=== PATIENT | female | born 1945 | race Caucasian/White ===

== ENCOUNTER 2021-04-13 21:52 | Inpatient (IN) ==
[2021-04-13] MEDS ORDERED: D5W IV ONE ×2 (23:00→23:54)
[2021-04-13] MEDS ORDERED: DILTIAZEM IV ONE ×2 (23:00→23:54)
[2021-04-13 23:20] LABS: ABS Basophils 0.1 10^3/ul (0-0.2); ABS Lymphocytes 1.6 10^3/ul (1.0-4.8); ABS Monocytes 0.7 10^3/ul (0-0.8); ABS Neutrophils 7.1 10^3/ul (1.5-7.7); Hematocrit 31 % (35-47); Hemoglobin 10.6 g/dL (12.0-16.0); Lymphocyte % 16.5 %; Mean Corpuscular HGB Conc 34 g/dL (31-36); Mean Corpuscular Hemoglobin 28 pg (27-31); Mean Corpuscular Volume 82 fL (80-97); Platelet Count 249 10^3/uL (150-450); Red Blood Count 3.84 10^6 /uL (3.70-4.87); Red Cell Distribution Width 16 % (10-15); White Blood Count 9.4 10^3/uL (3.5-10.8)
[2021-04-13 23:35] LABS: Albumin 3.2 g/dL (3.2-5.2); Anion Gap 10 mmol/L (2-11); CO2 Carbon Dioxide 24 mmol/L (22-32); Chloride 101 mmol/L (101-111); Magnesium 1.6 mg/dL (1.9-2.7); Potassium 3.8 mmol/L (3.5-5.0); Sodium 135 mmol/L (135-145)
[2021-04-13 23:41] LABS: ALT 14 U/L (7-52); AST 20 U/L (13-39); Albumin/Globulin Ratio 1.2 (1-3); Alkaline Phosphatase 73 U/L (35-149); Blood Urea Nitrogen 31 mg/dL (6-24); Globulin 2.6 g/dL (2-4); Glucose 338 mg/dL (70-100); Total Protein 5.8 g/dL (6.4-8.9)
[2021-04-13] MEDS ORDERED: Diltiazem (ADVAN VIAL) 100 MG/100 ML ADDV.BAG IV ONE (23:44)
[2021-04-13] MEDS ORDERED: Diltiazem IV push/loading dose 5 MG/ML 5 ML vial (25 mg) IV SLOW PU ONE (23:44)
[2021-04-13 23:51] LABS: TSH Ultra Thyroid Stim Horm 33.92 mcIU/mL (0.34-5.60)
[2021-04-13 23:52] LABS: Troponin I 0.06 ng/mL (<0.03)
[2021-04-14] MEDS ORDERED: Senna TAB 8.6 mg TAB PO PRN (00:34)
[2021-04-14] MEDS ORDERED: Dextrose 50% Syringe 50 ml 25 GM/50 ML SYRINGE IV PUSH PRN (00:36)
[2021-04-14] MEDS ORDERED: Magnesium Sulfate 2 gm BAG 2 GM/50 ML BAG IVPB ONE ×2 (00:38→02:20)
[2021-04-14] MEDS ORDERED: Ondansetron 4 mg VIAL 2 MG/ML 2 ml VIAL IV PRN (00:40)
[2021-04-14 01:18] LABS: Urine Appearance Cloudy; Urine Bilirubin Negative (Negative); Urine Blood 1+ (Negative); Urine Color Yellow; Urine Glucose 3+(>=500 mg/dL) (Negative); Urine Ketones Negative (Negative); Urine Nitrite Negative (Negative); Urine Protein 1+(30 mg/dL) (Negative); Urine Specific Gravity 1.021 (1.002-1.030); Urine Urobilinogen Negative (Negative)
[2021-04-14 01:22] LABS: Urine Bacteria 1+ (Absent); Urine Red Blood Cell 1+(3-5/hpf) (Absent); Urine Squamous Epithelial Cell Present (Absent); Urine White Blood Cell 2+(11-20/hpf) (Absent)
[2021-04-14 01:40] LABS: Rapid COVID-19 Molecular Undetected (Undetected)
[2021-04-14 01:46] LABS: Free T4 0.98 ng/dL (0.61-1.12)
[2021-04-14 03:30] LABS: Glucose Confirmatory 416 mg/dL (70-100)
[2021-04-14 03:36] LABS: Troponin I 0.07 ng/mL (<0.03)
[2021-04-14] MEDS ORDERED: Insulin GLARGINE 100 un/ml 10 ml VIAL SUBCUT ONE (04:14)
[2021-04-14] MEDS: cefTRIAXone 1 gm/50 mL NS BAG 1 GM/50 ML BAG IVPB SCH (05:52)
[2021-04-14 06:15] LABS: ABS Lymphocytes 1.3 10^3/ul (1.0-4.8); ABS Monocytes 0.6 10^3/ul (0-0.8); ABS Neutrophils 7.1 10^3/ul (1.5-7.7); Hematocrit 30 % (35-47); Lymphocyte % 14.7 %; Mean Corpuscular HGB Conc 34 g/dL (31-36); Mean Corpuscular Hemoglobin 28 pg (27-31); Mean Corpuscular Volume 81 fL (80-97); Mean Platelet Volume 7.7 fL (7.4-10.4); Platelet Count 246 10^3/uL (150-450); Red Blood Count 3.66 10^6 /uL (3.70-4.87); Red Cell Distribution Width 16 % (10-15); White Blood Count 9.1 10^3/uL (3.5-10.8)
[2021-04-14 06:30] LABS: Calcium 9.4 mg/dL (8.6-10.3); Potassium 3.1 mmol/L (3.5-5.0)
[2021-04-14 07:40] LABS: Magnesium 3.3 mg/dL (1.9-2.7)
[2021-04-14] MEDS ORDERED: CMCS: SitaGLIPtin 25mg TAB (NF) 25 MG TAB PO SCH (09:00)
[2021-04-14] MEDS: KCL 20 MEQ/100 ML IVPREMIX 20 MEQ/100 ML BAG IV SCH ×5 (09:34→23:37)
[2021-04-14] MEDS ORDERED: Metoprolol Tartrate 5 mg VIAL 5 ml VIAL (1 mg/ml) IV ONE (11:15)
[2021-04-14 16:16] LABS: Calcium 9.6 mg/dL (8.6-10.3); Potassium 3.6 mmol/L (3.5-5.0)
[2021-04-14] MEDS ORDERED: Furosemide 40 mg/4 ml IV VIAL IV SLOW PU ONE (17:03)
[2021-04-15] MEDS: cefTRIAXone 1 gm/50 mL NS BAG 1 GM/50 ML BAG IVPB SCH (05:11)
[2021-04-15 05:14] LABS: Hematocrit 36 % (35-47); Hemoglobin 12.2 g/dL (12.0-16.0); Mean Corpuscular HGB Conc 34 g/dL (31-36); Mean Corpuscular Hemoglobin 28 pg (27-31); Mean Corpuscular Volume 82 fL (80-97); Mean Platelet Volume 7.5 fL (7.4-10.4); Platelet Count 267 10^3/uL (150-450); Red Blood Count 4.41 10^6 /uL (3.70-4.87); Red Cell Distribution Width 17 % (10-15)
[2021-04-15 05:36] LABS: Calcium 9.3 mg/dL (8.6-10.3); Magnesium 1.8 mg/dL (1.9-2.7); Phosphorus 3.2 mg/dL (2.5-5.0); Potassium 3.8 mmol/L (3.5-5.0)
[2021-04-15] MEDS ORDERED: Magnesium Sulfate 2 gm BAG 2 GM/50 ML BAG IVPB ONE (07:39)
[2021-04-15] MEDS ORDERED: KCL 20 MEQ/100 ML IVPREMIX 20 MEQ/100 ML BAG IV ONE (08:35)
[2021-04-15] MEDS: Insulin GLARGINE 100 un/ml 10 ml VIAL SUBCUT SCH (08:49)
[2021-04-15] MEDS: Cefdinir SUSP ORALSYR 50 MG/ML (250 mg/5 ml) PO SCH ×2 (11:04→20:52)
[2021-04-15 20:04] LABS: Activated Partial Thrombo Time 28.7 seconds (26.0-38.0); INR 1.09 (0.86-1.15)
[2021-04-16 04:44] LABS: Hematocrit 35 % (35-47); Hemoglobin 11.6 g/dL (12.0-16.0); Mean Corpuscular HGB Conc 34 g/dL (31-36); Mean Corpuscular Hemoglobin 28 pg (27-31); Mean Corpuscular Volume 82 fL (80-97); Mean Platelet Volume 7.6 fL (7.4-10.4); Platelet Count 281 10^3/uL (150-450); Red Blood Count 4.21 10^6 /uL (3.70-4.87); Red Cell Distribution Width 17 % (10-15); White Blood Count 8.9 10^3/uL (3.5-10.8)
[2021-04-16 04:58] LABS: Calcium 9.2 mg/dL (8.6-10.3); Phosphorus 3.5 mg/dL (2.5-5.0); Potassium 3.7 mmol/L (3.5-5.0)
[2021-04-16] MEDS: Insulin GLARGINE 100 un/ml 10 ml VIAL SUBCUT SCH (08:10)
[2021-04-16] MEDS: Cefdinir SUSP ORALSYR 50 MG/ML (250 mg/5 ml) PO SCH (08:12)
[2021-04-16] MEDS ORDERED: diPHENhydraMINE 25 mg TAB PO PRN (15:57)
[2021-04-16] MEDS ORDERED: Sodium Phosphate ADULT ENEMA 133 ML BTL PR PRN (18:59)
[2021-04-16] MEDS ORDERED: Sodium Phosphate ADULT ENEMA 133 ML BTL ONE (18:59)
[2021-04-17 04:33] LABS: Hematocrit 32 % (35-47); Hemoglobin 10.9 g/dL (12.0-16.0); Mean Corpuscular HGB Conc 34 g/dL (31-36); Mean Corpuscular Hemoglobin 27 pg (27-31); Mean Corpuscular Volume 81 fL (80-97); Mean Platelet Volume 7.5 fL (7.4-10.4); Platelet Count 266 10^3/uL (150-450); Red Blood Count 3.97 10^6 /uL (3.70-4.87); Red Cell Distribution Width 16 % (10-15); White Blood Count 8.4 10^3/uL (3.5-10.8)
[2021-04-17 04:53] LABS: Calcium 8.8 mg/dL (8.6-10.3); Magnesium 1.8 mg/dL (1.9-2.7); Phosphorus 3.8 mg/dL (2.5-5.0); Potassium 3.6 mmol/L (3.5-5.0)
[2021-04-17] MEDS ORDERED: Potassium Chlor 20 meq TAB.ER PO ONE (09:07)
[2021-04-17] MEDS ORDERED: Magnesium Sulfate 2 gm BAG 2 GM/50 ML BAG IVPB ONE (09:08)
[2021-04-17] MEDS: Insulin GLARGINE 100 un/ml 10 ml VIAL SUBCUT SCH (09:24)
[2021-04-17 13:19] LABS: Rapid COVID-19 Molecular Undetected (Undetected)
[2021-04-17 14:47] VITALS: BP 110/65
== END 2021-04-17 12:20 | DRG 637 ==
LOC: ED 21:52 → SUATTDRO 04-14 00:40 → ICU 04-14 00:40 → MCHOB 04-14 00:54
PROVIDERS: ADMIT Internal Medicine; ATTEND Internal Medicine Critical Care Medicine